=== PATIENT | male | born 1950 | race African-American/Black ===

== ENCOUNTER 2020-06-26 07:38 | Day surgery (SDC) | payer OTHER ==
[2020-06-20 15:00] VITALS: BMI 38.5
[2020-06-26] MEDS ORDERED: LIDOCAINE HCL/PF 2% SDV 5ML VIAL ONE (07:54)
[2020-06-26] MEDS ORDERED: PROPOFOL 20 ML ONE ×3 (07:54)
[2020-06-26 09:44] VITALS: BP 130/80; PULSE 60; TEMP 97.7
== END 2020-06-26 09:44 | disposition home or self-care (01) ==
LOC: FASU-ENDO 07:38
PROVIDERS: ATTEND Internal Medicine Gastroenterology
PROC: 0DJD8ZZ Inspection of Lower Intestinal Tract, Via Natural or Artificial Opening Endoscopic (ICD-10-PCS; principal; 2020-06-26 08:22)
DX: Z09 Encounter for follow-up examination after completed treatment for conditions other than malignant neoplasm (principal); Z86.010 Personal history of colon polyps; Z83.71 Family history of colonic polyps; K57.30 Diverticulosis of large intestine without perforation or abscess without bleeding; Q43.8 Other specified congenital malformations of intestine